=== PATIENT | male | born 1945 | race Caucasian/White ===

== ENCOUNTER 2020-09-18 10:41 | Inpatient (IN) ==
[2020-09-18] MEDS ORDERED: CeFAZolin Syr 2,000MG/20 ML 2,000 MG/20 ML SYRINGE IVPB ONE (11:17)
[2020-09-18] MEDS ORDERED: Vancomycin 1,250 MG/262.5 ML IV.SOLN IVPB ONE (11:17)
[2020-09-18] MEDS ORDERED: Ringers Solution, Lactated 1,000 ML IVC SCH ×2 (11:30→19:24)
[2020-09-18] MEDS ORDERED: *HR* Heparin 5,000 UNIT/ML VIAL ONE ×3 (11:50→16:17)
[2020-09-18] MEDS ORDERED: Lidocaine -MPF 2% 2 ML VIAL ONE (11:52)
[2020-09-18] MEDS ORDERED: Ondansetron 4 MG/2 ML VIAL ONE (11:52)
[2020-09-18] MEDS ORDERED: *HR* FentaNYL (PF) 100 MCG/2 ML VIAL ONE (11:52)
[2020-09-18] MEDS ORDERED: Sugammadex Sodium 200 MG/2 ML VIAL IV ONE (11:53)
[2020-09-18] MEDS ORDERED: *HR* Phenylephrine 10 MG/ML VIAL ONE (11:55)
[2020-09-18] MEDS ORDERED: *HR* Propofol 200 MG/20 ML VIAL IVP ONE (11:55)
[2020-09-18] MEDS ORDERED: *HR* Vasopressin 20 UNIT/ML VIAL ONE (12:08)
[2020-09-18] MEDS ORDERED: Acetaminophen IV 1,000 MG/100 ML BAG IVPB ONE (12:08)
[2020-09-18] MEDS ORDERED: Albumin Human 5% 25.0 GM/500 ML IV.SOLN ONE (12:08)
[2020-09-18] MEDS ORDERED: Vancomycin 1,000 MG, Sodium Chloride IRRigation 1,000 ML IR ONE (12:30)
[2020-09-18] MEDS ORDERED: Heparin 1,000 UNITS/500 mL 0 ML ONE (12:37)
[2020-09-18] MEDS ORDERED: Heparin 1,000 UNITS/500 mL 2,500 ML ONE (13:04)
[2020-09-18] MEDS ORDERED: Lidocaine -MPF 4% 5 ML AMPUL ONE (13:04)
[2020-09-18] MEDS ORDERED: Isovue-300 50ML VIAL ONE ×2 (13:04→14:16)
[2020-09-18] MEDS ORDERED: *HR* Succinylcholine 200 MG/10 ML VIAL IVP ONE (13:13)
[2020-09-18] MEDS ORDERED: EPINEPHrine 1 MG/ML VIAL ONE (13:13)
[2020-09-18] MEDS ORDERED: *HR* Rocuronium Bromide 50 MG/5 ML VIAL ONE (13:13)
[2020-09-18] MEDS ORDERED: *HR* HYDROMORPHONE 2 MG/ML VIAL ONE (13:18)
[2020-09-18] MEDS ORDERED: NiCARdipine 2.5 MG/10 ML Syringe IVPB ONE (13:24)
[2020-09-18] MEDS ORDERED: EPHEDrine 50 MG/ML VIAL ONE (14:06)
[2020-09-18 14:40] LABS: ABG Base Excess -1 mEq/L (-2 to 3); ABG Chloride 107 mEq/L (98-107); ABG Glucose 99 mg/dL (60-95); ABG HCO3 24 mEq/L (21-27); ABG Ionized Calcium 1.19 mmol/L (1.15-1.35); ABG Oxygen Saturation 100 % (95-98); ABG PCO2 41 mmHg (35-45); ABG PH 7.38 pH Units (7.32-7.45); ABG PO2 251 mmHg (85-104); ABG TCO2 26 mEq/L (20-26)
[2020-09-18] MEDS ORDERED: *HR* Remifentanil 1 MG VIAL IVP ONE ×2 (14:47→16:20)
[2020-09-18] MEDS ORDERED: Acetaminophen 325 MG TABLET PO PRN (18:00)
[2020-09-18] MEDS ORDERED: *HR* Labetalol 20 MG/4 ML SYRINGE IVP PRN ×2 (18:00→19:24)
[2020-09-18] MEDS ORDERED: Naloxone 0.4 MG/ML INJ IVP PRN ×2 (18:00→19:24)
[2020-09-18] MEDS ORDERED: 0.9 % Sodium Chloride 1,000 ML IVC SCH ×2 (18:00→19:24)
[2020-09-18] MEDS ORDERED: *HR* HYDROcodone/Acet 5/325 mg TABLET PO PRN ×2 (18:00→19:24)
[2020-09-18] MEDS ORDERED: *HR* OxyCODONE Immed Rel 5 MG TABLET PO PRN ×2 (18:00→19:24)
[2020-09-18] MEDS ORDERED: *HR* Metoprolol 5 MG/5 ML VIAL IVP SCH (18:00)
[2020-09-18] MEDS ORDERED: Ondansetron 4 MG/2 ML VIAL IVP PRN ×2 (18:00→19:24)
[2020-09-18] MEDS: *HR* HYDROmorphone (PF) 1 MG/ML SYRINGE IVP PRN ×2 (18:17→18:25)
[2020-09-18] MEDS: Gabapentin 300 MG CAPSULE PO SCH (19:57)
[2020-09-18] MEDS: Acetaminophen 325 MG TABLET PO PRN (22:30)
[2020-09-19] MEDS: CeFAZolin 2 GM/120 ML BAG IVPB SCH ×2 (00:37→07:47)
[2020-09-19] MEDS: *HR* Metoprolol 5 MG/5 ML VIAL IVP SCH ×2 (00:37→06:19)
[2020-09-19] MEDS ORDERED: Vancomycin 1,250 MG/262.5 ML IV.SOLN IVPB ONE ×2 (02:00)
[2020-09-19 04:18] LABS: Basophils % 0.2 %; Eosinophils % 0.1 %; Hematocrit 38.7 % (37.5-50.1); Immature Granulocytes % 0.6 % (0-4); Lymphocytes # 0.7 K/mcL (0.6-4.6); Mean Corpuscular HGB Conc 34.1 g/dL (31.6-35.5); Mean Corpuscular Hemoglobin 32.9 pg (28.0-33.3); Mean Corpuscular Volume 96.5 fL (83.0-100.0); Mean Platelet Volume 9.1 fL (9.4-12.4); Monocytes # 0.8 K/mcL (0.0-1.3); Monocytes % 6.6 %; Neutrophils # 10.6 K/mcL (1.6-8.9); Platelet Count 146 K/mcL (140-400); Red Blood Count 4.01 M/mcL (4.19-5.50); Segmented Neutrophils % 86.5 %
[2020-09-19 04:37] LABS: BUN/Creatinine Ratio 21 (6-26); Blood Urea Nitrogen 17 mg/dL (8-23); Calcium 8.2 mg/dL (8.6-10.3); Carbon Dioxide 23 mEq/L (23-29); Chloride 110 mEq/L (98-107); Glucose 142 mg/dL (70-105); Osmolality,Calculated 296 (280-300); Potassium 3.8 mEq/L (3.5-5.1); Sodium 141 mEq/L (136-145); eGFR For African Americans > 60 (> 60); eGFR For Non-African Americans > 60 (> 60)
[2020-09-19 04:38] LABS: Hemoglobin 13.2 g/dL (12.9-16.9); White Blood Count 12.2 K/mcL (4.3-11.1)
[2020-09-19] MEDS: Acetaminophen 325 MG TABLET PO PRN ×2 (04:42→11:22)
[2020-09-19] MEDS ORDERED: *HR* Heparin 5,000 UNIT/ML VIAL SQ SCH ×2 (06:00)
[2020-09-19 06:49] VITALS: BP 145/83
[2020-09-19] MEDS: Gabapentin 300 MG CAPSULE PO SCH (07:45)
[2020-09-19] MEDS ORDERED: hydroCHLOROthiazide 25 MG TABLET PO SCH (09:00)
[2020-09-19] MEDS ORDERED: amLODIPine 5 MG TABLET PO SCH (09:00)
[2020-09-19] MEDS ORDERED: CeFAZolin 2 GM/120 ML BAG IVPB SCH (20:00)
== END 2020-09-19 12:26 | disposition home or self-care (01) | DRG 269 ==
LOC: SAMDAY 10:41 → 2NNU 19:21
PROVIDERS: ADMIT Surgery; ATTEND Surgery